=== PATIENT | female | born 1945 | race Caucasian/White ===

== ENCOUNTER → 2017-06-06 | Outpatient (CLI) | payer OTHER | LOC: BC 01:57 | DX: Z12.31 Encounter for screening mammogram for malignant neoplasm of breast (principal) ==

== ENCOUNTER → 2018-06-21 | Outpatient (CLI) | payer OTHER ==
[~2018-06-21] MED LIST: CALCIUM 500 +1 EAC5 PO; CENTRUM SILVER1 EAC4 PO; CHARCOAL200 MG PO; COD LIVER OIL1 EAC4 PO; GINKGO BILOBA500 MG PO; HORSETAIL PO; LISINOPRIL10 MG PO; NORVASC5 MG PO; OMEPRAZOLE40 MG PO; PROZAC20 MG PO; RALOXIFENE HCL60 MG PO; SAFFRON176.5 MG PO; VITAMIN B-1000.4 MG PO; VITAMIN D-32000 UNIT PO; XANAX 0.5 MG0.5 MG PO
== END ==
LOC: RAD 01:25
DX: Z12.31 Encounter for screening mammogram for malignant neoplasm of breast (principal)

== ENCOUNTER → 2019-07-14 | Outpatient (CLI) | payer OTHER ==
[~2019-07-14] MED LIST changes: +MAGNESIUM250 M1 PO
== END ==
LOC: RAD 11:50
DX: Z12.31 Encounter for screening mammogram for malignant neoplasm of breast (principal); K44.9 Diaphragmatic hernia without obstruction or gangrene

== ENCOUNTER → 2019-07-21 | Outpatient (CLI) | payer OTHER ==
[~2019-07-21] VITALS: Ht 162.6 cm; Wt 62.1 kg
--- NOTE | ~2019-07-21 | P ---
[facility] [place] [address] PROCEDURE REPORT Name: FLIP OROZCO Room #: [facility]#: [id number] Admission: 07/21/19 Attend Phys: Salty Worley MD Discharge: Date of : 49 Report #: [id number] THIS REPORT FOR: //name// CC: Salty Sneed MD OUTPATIENT UPPER ENDOSCOPY REPORT BRIEF HISTORY: The patient is a 73-year-old woman known to me who has a history of He's esophagus with previous radiofrequency ablation. She also has a hiatus hernia, has had reflux symptoms. She has been on omeprazole 40 mg daily. As long as she takes her omeprazole, she does not have any burning symptoms; however, she complains of throat clearing and voice changes. She has also had dysphagia in the past, has been dilated. Reports at this point in time, she does not have any solid food dysphagia. She has used PPIs in the past, she has used primarily omeprazole. She has taken it twice daily, but did not notice the difference in symptoms. PREOPERATIVE DIAGNOSES: 1. Reflux-type symptoms, on PPI therapy. 2. History of He's esophagus. POSTOPERATIVE DIAGNOSES: 1. A 6-8 cm sliding-type hiatus hernia. 2. Diffuse gastritis. MEDICATIONS: Deep sedation with propofol per anesthesia. SPECIMEN: Biopsies squamocolumnar junction. ESTIMATED BLOOD LOSS: 3 mL. PROCEDURE: EGD with biopsy. FINDINGS: Prior to propofol sedation, the procedure of upper endoscopy was reviewed with the patient as well as potential risks and its complications. She indicates she understands and desires to proceed. DESCRIPTION OF PROCEDURE: With the patient in left lateral decubitus position, the Olympus video endoscope was inserted in cervical esophagus under direct vision without difficulty. Examination of this organ through its entire style revealed normal esophageal mucosa down the squamocolumnar junction. The squamocolumnar junction was inspected in both white light and narrow banded imaging was seen. It was completely normal. There was no endoscopic evidence of He's esophagus. The mucosa was flat. No strictures, masses, nodules or raised areas were seen. The squamocolumnar junction appeared to be in [facility] [address] [place] [address] PROCEDURE REPORT Name: FLIP OROZCO Room #: [facility]#: [id number] Admission: 07/21/19 Attend Phys: Salty Worley MD Discharge: Date of : 49 Report #: [id number] appropriate position at the top of the gastric folds. Biopsies were obtained. In addition, she was noted to have a moderately large hiatus hernia measuring 6-8 cm. I was able to retroflex the scope within the hernia. The mucosa of hernia was unremarkable. Upon retroflexion, no masses were seen. The scope was advanced in the stomach, was examined on end view as well as retroflexed views. There was diffuse erythema, but no ulcers or erosions. This has been noted in the past. The pylorus, duodenal bulb and postbulbar duodenum were examined and noted to be unremarkable. At that point, the scope was slowly withdrawn and careful circumferential views confirmed the above findings. The patient tolerated the procedure well. I also might add that the distal esophagus was somewhat tortuous. This is likely result of her hiatus hernia. I did not see any endoscopic evidence of esophagitis. Scope was withdrawn. The patient tolerated the procedure well. CONDITION OF THE PATIENT UPON DISCHARGE: Following procedure, the patient drowsy. She will be discharged home when fully ambulatory. INSTRUCTIONS TO THE PATIENT AND FAMILY AT THE TIME OF DISCHARGE: The patient clearly has reflux disease and does have a history of He's esophagus. Question now is the etiology of her current symptoms of throat clearing and changes in her voice. I do not see endoscopic evidence of esophagitis, but she certainly may have reflux disease. She reports she has not used any other PPIs other than omeprazole. Therefore, we will try pantoprazole 40 mg twice daily. We will have return to see me in followup in the office. Another consideration would be repair of her hiatus hernia. As far as we are concerned that reflux is the cause of her symptoms, which is inadequate, controlled with PPI therapy. She also may need further evaluation such as esophageal manometry with impedance testing. At this point in time, we will switch her omeprazole to pantoprazole 40 mg twice daily and have her followup in the office. We will follow up on biopsies as well. By: [id number] Salty Worley MD /alanna
--- NOTE | 2019-07-22 14:07 | PATH ---
[facility] [address] [place] [address] PATHOLOGY RPT PROCEDURE Name: HORTENCIA KAPLAN Room #: REG EMER[facility] Vee.#: [id number] Admission: 07/21/19 Date of : 49 Discharge: Report #: [id number] Path Case #: [id number] [facility] Accession Number: [id number] . 01 Material submitted: . colon - BX OF GE JUNCTION . 01 Clinical history: . Pre-OP DX: Reflux, Hx of He's, status post radiofrequency ablation Post-OP DX: Hiatal hernia, gastritis . 02 Diagnosis: Squamous and glandular mucosa "BX of GE junction R/O He's": - Reflux esophagitis with reactive squamous and glandular mucosa. - There is no evidence of goblet cell metaplasia, dysplasia or malignancy. . (SHA:janessa; 07/22/2019) S 07/22/2019 0909 Local . 02 Electronically signed: . Slim Godoy MD, Pathologist NPI- [id number] . 01 Gross description: . Received in formalin labeled "Hortencia Kaplan, BX of GE junction to rule out He," are multiple segments of yang soft tissue measuring 1.6 x 0.5 x 0.1 cm in aggregate dimensions. The specimen is filtered and entirely submitted in cassette A1. (TSD; 07/21/2019) TOB/TOB 07/21/2019 2255 Local . 02 Pathologist provided ICD-10: K21.0 . 02 CPT . 883959 Specimen Comment: A courtesy copy of this report has been sent to [phone], [phone] Specimen Comment: [id number] Specimen Comment: Report sent to / DR DONNELLY Specimen Comment: A duplicate report has been generated due to demographic updates. Performed at: 01 [facility] [address] [place] [id number] MD Eyal Peres MD Phone: [phone] Performed at: 02 [place] [address] PATHOLOGY RPT PROCEDURE Name: HORTENCIA KAPLAN S [facility] [id number] Admission: 07/21/19 Date of : 49 Discharge: Report #: [id number] Path Case #: [id number] [address] [id number] MD Nicholas Cruz MD Phone: [phone]
== END | disposition home or self-care (01) ==
LOC: GI 06:36
DX: K21.0 Gastro-esophageal reflux disease with esophagitis (principal); K29.70 Gastritis, unspecified, without bleeding; K44.9 Diaphragmatic hernia without obstruction or gangrene; I10 Essential (primary) hypertension; F32.9 Major depressive disorder, single episode, unspecified; F41.9 Anxiety disorder, unspecified; Z87.891 Personal history of nicotine dependence; Z98.890 Other specified postprocedural states; Z79.899 Other long term (current) drug therapy; Z88.2 Allergy status to sulfonamides
CPT/HCPCS: 62110; 62900

== ENCOUNTER → 2019-07-22 | Outpatient (CLI) | payer OTHER | LOC: ULTRA 13:10 | DX: R92.2 Inconclusive mammogram (principal) ==

== ENCOUNTER → 2019-07-29 | Outpatient (CLI) | payer OTHER | LOC: SJCVCIMAG 08:00 | DX: I35.8 Other nonrheumatic aortic valve disorders (principal); I10 Essential (primary) hypertension; K21.9 Gastro-esophageal reflux disease without esophagitis; Z87.891 Personal history of nicotine dependence; Z88.2 Allergy status to sulfonamides; Z82.49 Family history of ischemic heart disease and other diseases of the circulatory system ==

== ENCOUNTER → 2020-12-21 | Outpatient (CLI) | payer OTHER | LOC: RAD 15:51 | PROVIDERS: ATTEND Family Medicine | DX: K44.9 Diaphragmatic hernia without obstruction or gangrene (principal); I10 Essential (primary) hypertension ==